=== PATIENT | female | born 1945 | race Caucasian/White ===

== ENCOUNTER 2017-01-18 03:15 | Inpatient (IN) | payer MEDICARE, OTHER, SELFPAY ==
[~2017-01-18] VITALS: Ht 157.5 cm; Wt 132.7 kg
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
--- NOTE | ~2017-01-18 | ECHO ---
Transthoracic Echocardiography Report (TTE) Demographics Patient Name KELLY TABOR Date of Study 01/26/2017 Patient Number [id number] Visit Number [id number] Date of 1945 Room Number G6313 Gender Female Number Age 71 year(s) Referring Rossy [place] Eladia Cutter And Presser Yessenia Peña RVT, Physician A MD AUBREY Roque MD Physician Interpreting Cordell [employer] Marketing Physician Dinora STEVENS Supervising Ordering Alo Roque MD/P Physician Nurse Stress Social Science Teacher Conclusions Summary Limited echo to assess right sided heart. Very limited visualization. Technically difficult exam. Right ventricle appears grossly normal in size (seen well in subcostal images) and RV systolic function appears normal, TAPSE > 1.6 cms. Right atrium is normal in size. IVC measured 1.20 cm with collapse. Procedure Type of Study TTE procedure:Echo Limited w/o Contrast. Procedure Date Date: 01/26/2017 Start: 09:20 AM Study Location: Inpatient Portable Technical Quality: Limited visualization due to body habitus. Indications:Pulmonary embolus. Appropriate Use Criteria: 6 Patient Status: Routine HR: 78 bpm BP: 133/63 mmHg M-Mode/2D Measurements RV Base: 3.69 cm RV Mid: 3.01 cm RV Length: 8.15 cm TAPSE: 2.77 cm TDI-S': 8.01 cm/s Doppler Measurements TR Velocity:1.36 m/s TR Gradient:7.4 mmHg Findings Right Ventricle Normal right ventricle structure and function. Right Atrium Normal right atrial size. IVC measures 1.20 cm with inspiratory collapse. Pericardial Effusion No pericardial effusion. Signature dtt: DINORA CALDERON dtd: 01/26/17 0920 Physician Self Edit
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
--- NOTE | ~2017-01-18 | PUL ---
PATIENT'S NAME: KELLY TABOR [facility] AGE: 71 Y [address] ROOM: [address] [address] LOCATION: GPCU ADMIT DATE: 01/18/2017 Pulmonary DISCHARGE DATE: FAMILY PHYSICIAN: Eladia Black MD ATTENDING PHYSICIAN: JOSIAH VELIZ NAME OF PROCEDURE: Overnight Pulse Oximetry DATE OF PROCEDURE: January 22 to January 23, 2017 REASON FOR EXAM: Nocturnal hypoxemia RESULTS: The test was started on room air, but supplemental oxygen at 1 liter/minute was later added approximately 1 hour into the study. The recording time was 7 hours, 55 minutes, and 44 seconds, with a total valid sampling time of 7 hours, 42 minutes, and 12 seconds. The highest pulse was 107, lowest pulse was 75, with a mean pulse of 91. The highest SpO2 was 96%, lowest SpO2 was 74%, with a mean SpO2 of 91%. The patient spent 1 hour, 18 minutes and 8 seconds with SpO2 less than 89%, representing 16.9% of the total sleep time. The desaturation event index was elevated at 7.5. PHYSICIAN INTERPRETATION: The patient has evidence of significant nocturnal hypoxia and would qualify for supplemental oxygen as per Medicare criteria. However, because of the severity of her nocturnal hypoxia with an elevated desaturation event index a sleep study is recommended at this time. MD HAYDE PEARSON/sedrick /[id number] dtt: 01/28/17 0752 LYLY RADU F dtd: 01/27/17 1117
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
--- NOTE | ~2017-01-18 | ENPV ---
Vascular Lower Extremities DVT Study Procedure Demographics Patient Name KELLY TABOR Date of Study 01/18/2017 Patient Number [id number] Gender Female Date of 1945 Age 71 Visit Number [id number] Height 62 Accession Number [id number] Weight 314.01 Referring Danay Perez MD Interpreting Joao Meier MD Physician Physician Physician Ordering Physician Sole Stainer Power Systems Engineer Maranda Hollingsworth [facility] Conclusions Summary Normal venous duplex examination of the legs bilaterally with normal venous Doppler signals noted throughout. No evidence of thrombophlebitis is noted bilaterally in the deep and superficial veins of the legs. Small calf thrombi cannot be excluded. Procedure Type of Study: Veins:Lower Extremities DVT Study, Lower Extremity Left. Indications for Study:Unilateral pain and edema. Appropriate Use Criteria:7 Technical Quality:Poor visualization due to body habitus. Velocities are measured in cm/s ; Diameters are measured in cm Left Lower Extremities DVT Study Measurements Left 2D and Doppler Measurements + + + + +------+------+ + !Location !Visualized!Compressibility!Thrombosis!Signal!Reflux!Reflux ! ! ! ! ! ! ! !(sec) ! + + + + +------+------+ + !GSV Thigh !Yes !Yes !None !Phasic!No ! ! + + + + +------+------+ + !Common !Yes !Yes !None !Phasic!No ! ! !Femoral ! ! ! ! ! ! ! + + + + +------+------+ + !Prox !Yes !Yes !None !Phasic!No ! ! !Femoral ! ! ! ! ! ! ! + + + + +------+------+ + !Mid Femoral!Yes !Yes !None !Phasic!No ! ! + + + + +------+------+ + !Dist !Yes !Yes !None !Phasic!No ! ! !Femoral ! ! ! ! ! ! ! + + + + +------+------+ + !Popliteal !Yes !Yes !None !Phasic!No ! ! + + + + +------+------+ + !Gastroc !Yes !Yes !None !Phasic!No ! ! + + + + +------+------+ + !PTV !Yes !Yes !None !Phasic!No ! ! + + + + +------+------+ + !Peroneal !No ! ! ! ! ! ! + + + + +------+------+ + Impressions Left Impression Negative for DVT Patient non compliant for venous compression at each CFV site due to pain and movement Signature dtt: WALDEMAR TOWNSEND dtd: 01/18/17 1355 Physician Self Edit
--- NOTE | ~2017-01-18 | ECHO ---
Transthoracic Echocardiography Report (TTE) Demographics Patient Name KELLY TABOR Date of Study 01/19/2017 Patient Number [id number] Visit Number [id number] Date of 1945 Room Number G6313 Gender Female Number Age 71 year(s) Referring Rossy Montilla Flight Director Maranda Perez MD [facility] Danay Berger Physician Interpreting Domi Substation Designer Physician Teena STEVENS Supervising Ordering Danay Perez MD/MLP Physician Nurse Stress Warp Knit Operator Conclusions Contractility Score Summary Normal Left Ventricular contractility was noted. Summary Technically difficult exam. Technically limited study due to body habitus and poor acoustic windows. With definity the apical half of the LV could be visualized. The left ventricle is probably normal in size and function.Cannot comment on WM. Dilated IVC with poor inspiratory collapse consistent with elevated RA pressure. Procedure Type of Study TTE procedure:2D Echocardiogram, M-Mode, Doppler , Color Doppler, Contrast study. Procedure Date Date: 01/19/2017 Start: 10:56 AM Study Location: Inpatient Portable Technical Quality: Limited visualization due to body habitus. Indications:Edema. Additional Indications:Peripheral edema Appropriate Use Criteria: 9 Patient Status: Routine Contrast Medium: Definity. Amount - 9 ml HR: 100 bpm BP: 103/64 mmHg M-Mode/2D Measurements LA volume: 32 ml LVOT: 2 cm Doppler Measurements MV Peak E-Wave: 0.99 m/s MV Peak A-Wave: 1.32 m/s MV E/A Ratio: 0.75 TR Velocity:1.1 m/s MV P1/2t: 98 msec TR Gradient:4.84 mmHg E' Lateral Velocity: 0.12 m/s A' Septal Velocity: 0.13 m/s A' Lateral Velocity: 0.22 m/s Findings Left Ventricle The left ventricle is probably normal in size and function. Right Ventricle The right ventricle is not well visualized. Left Atrium The left atrium is not well visualized. Right Atrium The right atrium is not well visualized. Dilated IVC with poor inspiratory collapse consistent with elevated RA pressure. Mitral Valve Not well seen Aortic Valve The aortic valve is not well visualized. Tricuspid Valve The tricuspid valve is not well visualized. Pulmonic Valve The pulmonic valve is not visualized. Miscellaneous The aortic root and ascending aorta are not well visualized. Contractility Score LV regional wall motion:(0-Non visualized 1-Normal 2-Hypokinesis 3-Akinesis 4-Dyskinesis 5-Aneurysm) Signature dtt: Teena Duron dtd: 01/19/17 1056 Physician Self Edit
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
[2017-01-18 04:27] LABS: BASOPHIL # 0.1 K/uL (0.0-0.2); BASOPHIL % 0.5 %; EOSINOPHIL # 0.2 K/uL (0.0-0.5); EOSINOPHIL % 1.1 %; HEMATOCRIT 36.8 % (33.0-46.0); HEMOGLOBIN 11.7 g/dL (10.0-15.0); IMMATURE GRANULOCYTE # 0.2 K/uL (0.0-0.3); IMMATURE GRANULOCYTE % 1.4 %; LYMPHOCYTE # 1.5 K/uL (0.8-4.0); MCH 29.3 pg (27.0-34.0); MCHC 31.8 gm/dL (32.0-36.5); MCV 92.2 fl (83.0-98.0); MONOCYTE # 0.6 K/uL (0.0-1.0); MONOCYTE % 4.4 %; MPV 10.5 fl (9.4-12.4); NEUTROPHIL # (ANC) 10.8 K/uL (1.8-7.8); NEUTROPHIL % 81.6 %; NRBC % 0 /100WBC (0-0.00); PLATELET COUNT 314 K/uL (150-450); RBC 3.99 M/uL (3.50-5.50); RDW-CV 13.7 % (11.9-14.6); WBC 13.3 K/uL (4.0-11.0)
[2017-01-18 04:42] LABS: ALBUMIN 2.2 gm/dL (3.5-5.0); CREATININE 1.4 mg/dL (0.5-1.1); TOTAL BILIRUBIN 0.5 mg/dL (0.0-1.5)
--- NOTE | 2017-01-18 08:45 | NUR ---
71 YR OLD FEMALE AT HOME AND NIECE BROUGHT TO ER. LOTS OF FLUID DRAINING OUT OF LEG AT HOME. LFT LEG INFECTION. NO ALLERGIES. PATIENT VERY DROWSY.
[2017-01-18] MEDS ORDERED: LASIX40 MG PO (10:52)
[2017-01-18] MEDS ORDERED: PRINIVIL OR ZES10 MG PO (10:53)
[2017-01-18] MEDS ORDERED: K-TAB 10MEQ10 MEQ PO (10:54)
[2017-01-18] MEDS ORDERED: ZOCOR40 MG PO (10:54)
[2017-01-18] MEDS ORDERED: PROTONIX40 MG PO (10:54)
[2017-01-18] MEDS ORDERED: PROVENTIL OR V6.7 GM INH (10:55)
[2017-01-18] MEDS ORDERED: ULTRAM50 MG PO (10:55)
[2017-01-18] MEDS ORDERED: SYMBICORT 16010.2 GM INH (10:55)
[2017-01-18] MEDS ORDERED: TYLENOL EXTRA500 MG PO (10:56)
[2017-01-18] MEDS ORDERED: COZAAR50 MG PO (10:56)
[2017-01-18] MEDS ORDERED: RESTASIS1 EACH OPHTH (10:56)
--- NOTE | 2017-01-18 17:12 | NUR ---
Significant Event: pt arrived from ER at shift change. CXR done. Venous legs doppled, echo in am. CT left leg this afternoon, pt npo until dr reads. Ayala inserted as pt could not void on bedpan. Pt very tachypneic and dyspneic today, does rest well, sleeps alot. Bumex drip started, antibitiotics given and albumin. Extra IV started by flight r)first finger. Call renal to dr as 1700 draw. 99. 2 max temp. Ultram at 1600 for pain. Follow up:
[2017-01-18 17:54] LABS: ALBUMIN 2.3 gm/dL (3.5-5.0); ANION GAP 12.2 (10.0-19.0); MAGNESIUM 2.5 mg/dL (1.3-2.6); PHOSPHORUS 3.1 mg/dL (2.5-4.9); POTASSIUM 4.2 mMol/L (3.7-5.1)
--- NOTE | 2017-01-19 03:47 | NUR ---
Significant Event:A/0X3. RESTED IN BED ALL OF SHIFT. TURNED Q 2 HRS SIDE TO SIDE. HAD A MAX TEMP OF 99.3 IN OR BUT AFBRILE SINCE. VSS ON 2L. MIDLINE TO L) AC HAS BUMEX RUNNING AT 0.5 MG/H. IV TO R) HAND SL. CONTINUE WITH IV ANTIBIOTICS. WENT DOWN FOR AN I/D THIS EVENING ON THE L) THIGH WITH A WOUND VAC PLACED AT 125 MM/HG. NO C/O OF PAIN THIS SHIFT. PATIENT IS RESTING COMFORTABLY. WOC CONSULT TO CHANGE DRESSING 3X/WEEK. VELAZQUEZ PATENT WITH 1,650 ML OUT. NO BM THIS SHIFT. Follow up: DILMA WITH PLAN OF CARE.
[2017-01-19 04:41] LABS: HEMATOCRIT 34.6 % (33.0-46.0); HEMOGLOBIN 10.7 g/dL (10.0-15.0); MCH 29.2 pg (27.0-34.0); MCHC 30.9 gm/dL (32.0-36.5); MCV 94.5 fl (83.0-98.0); MPV 10.9 fl (9.4-12.4); RBC 3.66 M/uL (3.50-5.50); RDW-CV 14.1 % (11.9-14.6); WBC 8.4 K/uL (4.0-11.0)
[2017-01-19 04:47] LABS: PLATELET COUNT 221 K/uL (150-450)
[2017-01-19 04:58] LABS: ALBUMIN 2.7 gm/dL (3.5-5.0); ANION GAP 11.1 (10.0-19.0); CALCIUM 7.9 mg/dL (8.5-10.5); CREATININE 1.1 mg/dL (0.5-1.1); MAGNESIUM 2.4 mg/dL (1.3-2.6); PHOSPHORUS 4.2 mg/dL (2.5-4.9); POTASSIUM 4.1 mMol/L (3.7-5.1)
[2017-01-19 06:26] LABS: ABSOLUTE NEUTROPHIL CT (ANC) 6.6 K/uL (1.8-7.8); BANDED NEUTROPHIL # 0.4 K/uL (0.0-0.1); BANDED NEUTROPHILS % 5 %; LYMPHOCYTE # 1.3 K/uL (0.8-4.0); LYMPHOCYTE % 16 %; MONOCYTE # 0.3 K/uL (0.0-1.0); SEGMENTED NEUTROPHIL # 6.2 K/uL (1.8-7.8); SEGMENTED NEUTROPHIL % 74 %
[2017-01-19 18:54] LABS: ANION GAP 12.6 (10.0-19.0); MAGNESIUM 1.9 mg/dL (1.3-2.6); POTASSIUM 3.6 mMol/L (3.7-5.1)
--- NOTE | 2017-01-19 19:41 | NUR ---
Significant Event: A/O x3, cooperative with cares. VSS, SBPs 90-120s, HRs 80-90s, oxygen at 2 liters; attempted to wean to room air however patient's saturation with drop with repositioning et talking. Tramadol given x2, last at 1502, for c/o pain to L) leg; relief noted. Wound vac intact to L) lower anterior thigh/knee region. WOC nurse up to see patient; stated would changed vac dressing tomorrow since placed last night. Minimal amount of drainage out of wound vac. Ayala patent et draining clear yellow urine 3575 ml out this shift. Remains on bumex gtt at 0.5mg/hr. Reposition every 2 hours when patient allows. PT/OT consults Follow up: wound vac dressing change tomorrow; ID consult on Thu; ? need for PICC line d/t ? intermodal dispatcher abx
--- NOTE | 2017-01-20 04:40 | NUR ---
Significant Event: Patient alert and oriented x3. Forgetful at times. Frequently asks what the wound-vac is and why she has it. Turned Q2 when patient allowed. Temp of 100.2 with second assessment. Tylenol given with relief. All other vital signs stable. On 3-4L this shift. Midline to L) AC with Bumex and IV antibiotics running. IV Magnesium and Potassium given per Dr. Jon orders. Wound-Vac continues to left thigh at 125mm/hg. No C/O pain this shift. Ayala patent with 3450ml uop. Very small BM this shift. Follow up: Will continue to monitor Wound-Vac and respiratory status. Continue IV antibiotics.
[2017-01-20 04:43] LABS: BASOPHIL % 0.4 %; EOSINOPHIL # 0.3 K/uL (0.0-0.5); HEMATOCRIT 34.4 % (33.0-46.0); HEMOGLOBIN 10.9 g/dL (10.0-15.0); IMMATURE GRANULOCYTE # 0.1 K/uL (0.0-0.3); IMMATURE GRANULOCYTE % 1.6 %; LYMPHOCYTE # 1.5 K/uL (0.8-4.0); LYMPHOCYTE % 18.3 %; MCH 29.2 pg (27.0-34.0); MCHC 31.7 gm/dL (32.0-36.5); MCV 92.2 fl (83.0-98.0); MONOCYTE # 0.4 K/uL (0.0-1.0); MONOCYTE % 4.7 %; MPV 9.9 fl (9.4-12.4); NRBC % 0 /100WBC (0-0.00); PLATELET COUNT 247 K/uL (150-450); RBC 3.73 M/uL (3.50-5.50); RDW-CV 13.9 % (11.9-14.6); WBC 8.4 K/uL (4.0-11.0)
[2017-01-20 05:09] LABS: ALBUMIN 3.1 gm/dL (3.5-5.0); CALCIUM 7.7 mg/dL (8.5-10.5); MAGNESIUM 2.2 mg/dL (1.3-2.6); POTASSIUM 3.8 mMol/L (3.7-5.1)
[2017-01-20 05:16] LABS: ANION GAP 7.8 (10.0-19.0)
--- NOTE | 2017-01-20 13:45 | NUR ---
Introduced self and role of care management to patient. She lives alone in [place]. She says she has had HHC through [facility] in the past and will want HHC again. She uses a walker at home. Does not use O2 at home. Says she still drives and has a good car in her driveway. Talked to her about skilled care for awhile. She says she is going home. She says her 40 year old nephew from [place] is going to come stay with her for awhile when she goes home. She says she has a sister in [place] and she has bought at home in [place]. She says she is planning on moving to [place] in April. She has several step children and other relatives in the area. She says a niece was to bring her phone up to the hospital and she has not done it yet. She says they aren't dependable and that is why she is moving to [place]. A lorettaon came to visit and she doesn't want to talk anymore as she says her plan is home with HHC. Talked with Dr. Jon and she says patient will need skilled care. Will contact her sister to talk about discharge plans. Will follow.
[2017-01-20 17:12] LABS: ALBUMIN 3.4 gm/dL (3.5-5.0); ANION GAP 7.3 (10.0-19.0); CALCIUM 7.7 mg/dL (8.5-10.5); CREATININE 1.1 mg/dL (0.5-1.1); MAGNESIUM 1.8 mg/dL (1.3-2.6); PHOSPHORUS 2.2 mg/dL (2.5-4.9); POTASSIUM 3.3 mMol/L (3.7-5.1)
--- NOTE | 2017-01-20 18:42 | NUR ---
Significant Event: VSS AND 2L/NC. AFEBRILE. ULTRAM X1 PRIOR TO WOUND VAC CHANGE, WOUND VAC INCREASED TO 150 MMHG SUCTION AND WILL BE CHANGED AGAIN BY WOC RN ON THURSDAY. IV VANCO AND MERRUM D/C'D AND STARTED NAFCILLIN. BUMEX GTT CONTINUES; VELAZQUEZ WITH 4100 MLS UOP. PICC CONSULT AND TO BE PLACED TOMORROW; MIDLINE AND PIV CONTINUE TO WORK WNL. DANGLES AT BEDSIDE AND WALKS A FEW STEPS WITH PT/OT; UP TO BSC WITH SMALL BM THIS AM. REPOSITIONED Q2H AND ALOE TO BUTTOCKS, NYSTATIN TO FOLDS. Follow up: CONTINUE PLAN OF CARE.
[2017-01-21 03:21] LABS: BASOPHIL % 0.3 %; EOSINOPHIL # 0.2 K/uL (0.0-0.5); EOSINOPHIL % 2.3 %; HEMATOCRIT 36.6 % (33.0-46.0); HEMOGLOBIN 11.8 g/dL (10.0-15.0); IMMATURE GRANULOCYTE # 0.1 K/uL (0.0-0.3); IMMATURE GRANULOCYTE % 1.3 %; LYMPHOCYTE % 20.4 %; MCH 29.1 pg (27.0-34.0); MCHC 32.2 gm/dL (32.0-36.5); MCV 90.1 fl (83.0-98.0); MONOCYTE # 0.4 K/uL (0.0-1.0); MONOCYTE % 4.5 %; MPV 9.8 fl (9.4-12.4); NEUTROPHIL # (ANC) 6.8 K/uL (1.8-7.8); NEUTROPHIL % 71.2 %; NRBC % 0 /100WBC (0-0.00); PLATELET COUNT 278 K/uL (150-450); RBC 4.06 M/uL (3.50-5.50); RDW-CV 13.7 % (11.9-14.6); WBC 9.6 K/uL (4.0-11.0)
[2017-01-21 03:38] LABS: ALBUMIN 3.6 gm/dL (3.5-5.0); ANION GAP 11.5 (10.0-19.0); CALCIUM 8.1 mg/dL (8.5-10.5); CREATININE 1.2 mg/dL (0.5-1.1); MAGNESIUM 2.2 mg/dL (1.3-2.6); PHOSPHORUS 2.9 mg/dL (2.5-4.9); POTASSIUM 3.5 mMol/L (3.7-5.1)
--- NOTE | 2017-01-21 05:00 | NUR ---
Significant Event: Patient alert and oriented x3. Forgetful at times. Makes odd statements at times. Turned when patient allowed. Temp of 99.9 with second assessment. All other vital signs stable. On 4L per NC. Extra strength Tylenol given for temp and complaints of pain to left leg. Wound-Vac continues to left thigh. Set at 150. WOC to change again on Thursday. IV Magnesium given per Dr. Jon orders. Ayala patent with 2850ml uop. Midline to L) AC running Bumex. No BMs this shift. Follow up: Will continue to monitor Wound-Vac and respiratory status. PICC placement today. Continue IV antibiotics.
--- NOTE | 2017-01-21 13:30 | NUR ---
Called and spoke with patient's sister Palak. She says patient usually spends most of the summer in [place] and goes back to [place] for the winter months. She says Melinda has bought a home in [place] and will be moving there permanently. She thinks Melinda's home will probably be ready before April. Talked with her about options for Melinda. Told her Melinda said she had a nephew that would come stay with her. Palak doesn't know for sure who that would be or how long they would stay. Talked about HHC and skilled care. Told her Dr. Jon is recommending skilled care and that I would agree. Told her based on how Melinda is currently moving having just one person at home to help her would not be enough. Talked about SNF facilities close to [place], in [place] and in [place]. Palak says if she goes to a SNF would want it to be in [place]. She says she will talk to the rest of the family and to Melinda about going to a SNF for therapy and to get stronger. Palak will call be back with what facilities they choose. Visited with patient. She is concerned about a form she needs to sign and have notarized. Looked at form with her and told her it appears to be a financial form and I don't think our notaries can do financial forms but I will call them. Called [facility] and she says they can not notarize any financial related forms and this form would fall into that category. Updated patient and she says OK. Talked with patient about discharge plans and skilled care. She says she will be going home with [facility] and that is final. Told her we are worried about her ability to move and do ADLs, etc at home. She says she will be fine at home if [facility] comes in and takes care of her legs. She says his home is all set up. She has a ramp, a walk in shower, a cane, a walker, a w/c etc at home. She say she will not go to a SNF and if she has to show me she can walk she will. She says her legs hurt and that is why she isn't walking, not because she can't. Encouraged her to work with therapy. Will follow.
[2017-01-21 16:17] LABS: ANION GAP 13.3 (10.0-19.0); CALCIUM 8.2 mg/dL (8.5-10.5); CREATININE 1.3 mg/dL (0.5-1.1); MAGNESIUM 2.1 mg/dL (1.3-2.6); POTASSIUM 3.3 mMol/L (3.7-5.1)
--- NOTE | 2017-01-21 17:38 | NUR ---
PATIENT UP TO CHAIR W/ PT/OT, HEAVY 2 ASSIST. SATS LOW 90'S ON 4L NC. HR 90'S, SBP 100'S-120'S. IV BUMEX TO BE D/C'D AT 18:00. LAST DOSE ALBUMIN GIVEN TODAY. CONTINUED IV ANTIBIOTICS. INFECTIOUS DISEASE CONSULTED. STOOL SAMPLE SENT TO LAB. LABS ORDERED FOR AM.
[2017-01-22 04:33] LABS: ALBUMIN 3.6 gm/dL (3.5-5.0); ANION GAP 15.4 (10.0-19.0); CREATININE 1.7 mg/dL (0.5-1.1); MAGNESIUM 2.1 mg/dL (1.3-2.6); PHOSPHORUS 4.1 mg/dL (2.5-4.9); POTASSIUM 3.4 mMol/L (3.7-5.1)
--- NOTE | 2017-01-22 06:05 | NUR ---
Significant Event: Patient alert and oriented x3. Forgetful. Makes confused/odd statements at times. RR 25 with assessments. All other vital signs stable. On 4L O2 per NC. Refused to get into bed until third assessment. Repositioned when allowed. GFR down to [address] Grover notified. Losartin, Linsinopril, and Bumex all stopped. PO potassium given. Wound-Vac continues to left thigh. WOC to change again on Thursday. Ayala patent with 825ml uop. Midline conitinues to L) AC. Cooperative with most cares. Follow up: Will continue to monitor Wound-Vac and respiratory status. Continue IV antibiotics.
--- NOTE | 2017-01-22 13:00 | NUR ---
Spoke with patient, a step son and a niece. Talked with them about discharge plans. Patient says the plan was for her sister to pick her up and she has a place lined up for her to go. But she says the was just here and said she would be here another week because of her kidneys. Asked if I could call her sister, as told her I need to work with the facility the sister has chosen. She says I can. Will contact sister. Will follow.
[2017-01-22 15:34] LABS: BLOOD URINE 10 /UL (NEGATIVE); COLOR URINE YELLOW (YELLOW); GLUCOSE URINE NEGATIVE (NEGATIVE); KETONE URINE NEGATIVE (NEGATIVE); LEUKOCYTES URINE NEGATIVE /UL (NEGATIVE); NITRITE URINE NEGATIVE (NEGATIVE); PROTEIN URINE 15 mg/dL (NEGATIVE); SPEC GRAVITY URINE 1.005 (1.003-1.035); TURBIDITY URINE CLEAR (CLEAR); UROBILINOGEN URINE 1 mg/dL (NORMAL)
[2017-01-22 15:41] LABS: AMORPHOUS URINE 1+ (NEGATIVE); BACTERIA URINE RARE (NEGATIVE); RBC URINE 0-2 #/HPF (NEGATIVE)
--- NOTE | 2017-01-22 17:05 | NUR ---
PATIENT UP TO CHAIR W/ 2 ASSIST, PT/OT. RETURNED TO BED W/ LIFT. REPOSITION Q 2 HRS. ULTRAM X2 FOR PAIN. CONTINUED WOUND VAC. CONTINUED 4L NC, KEEPS SATS LOW 90'S. NEPHROLOGY CONSULTED, DR ROBERSON ROUNDED ON PATIENT. ORDERED DAILY WEIGHT/ STRICT I/O. D/C'D IV ANTIBIOTICS, STARTED PO DOXYCYCLINE. IV NS ORDERED X 24 HOURS. KIDNEY ULTRASOUND COMPLETED, URINE SAMPLE SENT FOR LABS. HEMATEST NEG.
--- NOTE | 2017-01-23 04:19 | NUR ---
Patient A/Ox3. VSS on 1-4L NC. Lift or 2 assist with walker. Lt AC midline NS @ 100ml. Lungs clear/diminished. Bowel sounds present. Wound Vac to Lt thigh intact. Ayala 550ml out. Edema bilateral lower legs. No complaints.
[2017-01-23 06:12] LABS: ALBUMIN 3.3 gm/dL (3.5-5.0); ANION GAP 11.8 (10.0-19.0); CALCIUM 8.2 mg/dL (8.5-10.5); CREATININE 1.5 mg/dL (0.5-1.1); POTASSIUM 3.8 mMol/L (3.7-5.1); TOTAL BILIRUBIN 0.5 mg/dL (0.0-1.5); TOTAL PROTEIN 7.3 g/dL (6.0-8.4)
--- NOTE | 2017-01-23 10:59 | NUR ---
reviewed student charting and on the floor from [id number] olivier [id number]
--- NOTE | 2017-01-23 12:15 | NUR ---
Left M for patient's sister Palak regarding facilitiy they have selected. Talked with therapy and patient went 15 ft today with therapy. Will follow.
--- NOTE | 2017-01-23 13:24 | NUR ---
A - PT SCREENED D/T LOS. WOUND VAC L) THIGH. 3-4+ EDEMA. HT: 62" WT: 299# BMI: 57.9 LABS: ACCUCHECK WNL-REAS, BUN/CR 38/1.5, ALB 3.3, CRP 5.93 MEDS: DOXYCYCLINE, KCL, ALDACTONE, FEOSOL, FLORASTOR, PROTONIX, SSI DIET: DIABETIC, 2-3 GM NA+. INTAKE: 75-100% NEEDS: 4591-7024 KCAL, 100-125 G PRO D - INCREASED PRO NEEDS R/T HEALING AEB ALTERED SKIN INTEGRITY. I - GOAL FOR INTAKE TO REMAIN 75-100% FOR DURATION OF STAY. GOAL FOR IMPROVED SKIN INTEGRITY. WILL ADD OLGA BID M/E - WILL MONITOR INTAKE F/U IN 4-6 DAYS.
--- NOTE | 2017-01-23 15:36 | NUR ---
Received call from Palak, patient's sister and she says patient will be going to [facility] in [place]. She says she thought they were going to call me. Told her I had not heard from them yet, but I can call them also know that I have a name. Palak says she plans to transport Melinda when it is time for her to go to [facility]. Received call from Dejan at [facility]. She says they would be willing to look at patient. She says Melinda's niece works for a physician in [place] and he said he would follow her. Faxed information to Dejan at [facility] and await their decision. Will follow.
--- NOTE | 2017-01-23 16:27 | NUR ---
Significant Event: Patient A/O x3. VS stable on 2-4L O2 per NC. Currently on 2L. Patient full lift transfer for nursing staff. Shower this shift. Patient denies numbness or tingling to extremities. Patient complains of pain, Ultram x1 and Tylenol x1 given this shift with relief noted. Patient has wound vac to L) thigh. WOC in today to change dressing. Midline IV to L) AC SL. IV fluids D'Cd this shift per Dr. Lorenz. Kelly patent and draining yellow urine. 750 out of kelly this shift. Hematest, 1 stool needed. No BM this shift. Patient pleasant and cooperative with cares. Follow up:
[2017-01-24 05:27] LABS: BASOPHIL # 0.1 K/uL (0.0-0.2); BASOPHIL % 0.7 %; EOSINOPHIL # 0.3 K/uL (0.0-0.5); EOSINOPHIL % 4.5 %; HEMATOCRIT 35.2 % (33.0-46.0); HEMOGLOBIN 11.1 g/dL (10.0-15.0); IMMATURE GRANULOCYTE # 0.1 K/uL (0.0-0.3); LYMPHOCYTE # 1.9 K/uL (0.8-4.0); LYMPHOCYTE % 26.6 %; MCHC 31.5 gm/dL (32.0-36.5); MCV 91.9 fl (83.0-98.0); MONOCYTE # 0.4 K/uL (0.0-1.0); MONOCYTE % 5.5 %; MPV 10.1 fl (9.4-12.4); NEUTROPHIL # (ANC) 4.4 K/uL (1.8-7.8); NEUTROPHIL % 61.7 %; NRBC % 0 /100WBC (0-0.00); PLATELET COUNT 266 K/uL (150-450); RBC 3.83 M/uL (3.50-5.50); RDW-CV 14.6 % (11.9-14.6); WBC 7.1 K/uL (4.0-11.0)
[2017-01-24 05:42] LABS: ALBUMIN 3.2 gm/dL (3.5-5.0); CALCIUM 8.3 mg/dL (8.5-10.5); CREATININE 1.2 mg/dL (0.5-1.1); TOTAL BILIRUBIN 0.5 mg/dL (0.0-1.5); TOTAL PROTEIN 7.2 g/dL (6.0-8.4)
--- NOTE | 2017-01-24 07:12 | NUR ---
Significant Event: Alert and oriented X3. VSS. 2L NC. Repositioned every 2 hours. Patient has open areas to buttocks and coccyx. Wound vac to left thigh working well. Lower ext. continue to be red. no c/o pain. Patient concerned last night that her niece left yesterday morning around 10am with patient's debit card. Patient states that she gave her niece her card to go buy a few groceries with the understanding that she "would be right back". Patient called niece several times and left several messages with no returned call. I offered to call [facility] and patient refused. As of this note patient has not had contact with her niece. Follow up: Continue to monitor. Patient needs enc for self cares.
--- NOTE | 2017-01-24 16:05 | NUR ---
Significant Event: PT A/O X3, VSS, REPOSISION PT Q2 AND PRN. 2L TO RA. PT WORK WITH THERAPY. ORDERS TO WRAP LEGS W/ CONCHA WRAPS/TEDHOSE. ELEVATE BLE, POSSIBLE TO CHANGE TO ROOM W/ DOUBLE LIFT. ELEVATE BLE W/ PILLOW, AND BED SETTINGS - PT CAN TOLERATE. IV BUMEX GIVEN. FLUID RESTRICTION OF 1200CC/DAY. CALL LIGHT AND PERSONAL ITEMS IN REACH, QUESTIONS/CONCERNS ADDRESSED THIS TOD. FAMILY AT BEDSIDE OFF/ON THIS TOD. Follow up: REPOSISON Q2 AND PRN, ELEVATE LEGS, POSSIBLE TRANSFER TO ROOM W/ DBL LIFT. STRICT I/O - 1200CC FLUID REST. CONTINUE TO MONITER, CONTINUE PER PLAN OF CARE
[2017-01-25 04:26] LABS: ALBUMIN 3.1 gm/dL (3.5-5.0); ANION GAP 11.9 (10.0-19.0); CALCIUM 8.6 mg/dL (8.5-10.5); CREATININE 1.2 mg/dL (0.5-1.1); PHOSPHORUS 3.2 mg/dL (2.5-4.9); POTASSIUM 3.9 mMol/L (3.7-5.1)
--- NOTE | 2017-01-25 05:46 | NUR ---
Significant event: A/O x 3. Repositioned every 2 hours and as needed throughout the night. Reed wraps off of legs as hs. BM x 1. All VSS on 2L nc with sats in the 90's. wound vac intact.
--- NOTE | 2017-01-25 16:29 | NUR ---
Significant Event: PT A/O X3, VSS, PT TURN/REPO Q2, ELEVATE LEGS ABOVE HEART X2 THIS SHIFT. WASH/DRY LEGS/FEET - APPLY ALOEVISTA AND CONCHA WRAPS BLE. REZERO BED AND CHECK WEIGHT - W/ GREEN SHEET/PT/GOWN. NOTIFED DR. SAEED OF WEIGHT DISCRIPENCY. FAMILY AT BED SIDE OFF/ON THIS TOD. CALL LIGHT AND PERSONAL ITEMS IN REACH. QUESTIONS/CONCERNS ADDRESSED THIS TOD. Follow up: ELEVATE LEGS, STRICT I/O, FLUID REST TO 1500CC/ML. CONTINUE TO MONITER, CONTINUE PER PLAN OF CARE.
--- NOTE | 2017-01-26 05:28 | NUR ---
Significant event: A/O x 3. Repositioned every 2 hours. Reed wraps off at night. Patient to have feet elevated above heart at least two times a day. kelly intact with 3100ml UOP. WOC to come and change the wound vac dressing today.
[2017-01-26 11:43] LABS: ALBUMIN 3.4 gm/dL (3.5-5.0); ANION GAP 14.8 (10.0-19.0); CALCIUM 9.2 mg/dL (8.5-10.5); CREATININE 1.5 mg/dL (0.5-1.1); PHOSPHORUS 3.3 mg/dL (2.5-4.9); POTASSIUM 3.8 mMol/L (3.7-5.1)
--- NOTE | 2017-01-26 16:12 | NUR ---
Significant Event: WOUND VAC CHANGED TODAY. CONCHA WRAPS ON TO LOWER LEGS. CHF CALENDAR GIVEN. 02 ROOM AIR. ULTRAM AND TYLENOL FOR PAIN. ICE LEFT KNEE. PT AMB IN ROOM TODAY TO DOOR. Follow up:
--- NOTE | 2017-01-26 17:36 | NUR ---
Left [facility] for Dejan at [facility]. Talked with her sister, Palak and updated her. She says her DIL has been working with Dejan so she will call them escobar and see if she has heard from Dejan. Told Palak I will call her when I hear back from Dejan. Waiting to hear back from Dejan at [facility] in [place]. Will follow.
--- NOTE | 2017-01-27 04:25 | NUR ---
Significant Event: A/O, [place], SBP 120-130s, HR 80s, 1-2L O2, SOB with activity, pivot transfer to bed with 2 assist, patient did well/needs encouragement, kelly-1000ml, wound vac to L)knee, reinforced with tegaderm, patient pain improved alot after leak was fixed, Ultram x1, Tylenol x1, jennifer wraps removed, legs elevated Follow up: continue plan of care
--- NOTE | 2017-01-27 08:32 | NUR ---
A - NUTRITION F/U. NO NEW LABS. PT W/ 1-2+ BLE EDEMA. NO NEW LABS. PT W/ WOUND VAC TO L) THIGH. DIET: DIABETIC, 2-3 GM NA+, 1500 ML FLUID RESTRICTION. PO 75-100%. EST NEEDS: 0391-9296 KCALS, 100-125 GM PROTEIN. D - AT RISK W/ INCREASED NEEDS R/T ALTERED SKIN INTEGRITY AEB THIGH WOUND. I - GOAL: CONTINUED 75-100% INTAKE. M/E - F/U IN 4-6 DAYS.
[2017-01-27 09:59] LABS: ALBUMIN 3.4 gm/dL (3.5-5.0); CALCIUM 8.9 mg/dL (8.5-10.5); CREATININE 1.3 mg/dL (0.5-1.1); PHOSPHORUS 3.7 mg/dL (2.5-4.9)
--- NOTE | 2017-01-27 15:55 | NUR ---
Significant Event: A/O X3. UP WITH HEAVY 2 ASSIST, GB AND WALKER TO CHAIR. LEFT UPPER MIDLINE SL'D, GOOD BLOOD RETURN. O2 @ 1.5L NC. VELAZQUEZ CATHETER PATENT WITH 1800 ML UOP. PO BUMEX 1 MG RESTARTED. Follow up: CM WORKING ON PLACEMENT.
--- NOTE | 2017-01-27 17:18 | NUR ---
Call from Dejan at [facility] and they can accept patient when she is ready. Spoke with patient and updated her. She says she doesn't think she will go until Thursday or Thursday. Told her it will not be Thursday as they probably won't accept her on the w/e. Talked to Dr. Jon and Rosie ESCOBAR and they say she can transfer tomorrow if family can transport. Called and spoke with patient's sister Palak and she says her son will be the one to transport her and she says he will be able to do it tomorrow. She says he can be here about 1100. Updated Rosie ESCOBAR. Transport O2 will need to be set up by RT. Called and left M for Dejan at [facility] to update her and told her need the name and phone number for the physician following patient while there. Anticipate transfer to [facility] in [place] on 01/28 at 1100. Will follow.
--- NOTE | 2017-01-28 04:30 | NUR ---
Significant Event: Patient A/Ox3. VSS on 1.5L. Ayala d/c'd at 1900. Voiding fine per bedpan. One moderate BM this shift. Heavy 2 assist. SBP 130s-150s. HR 80s-90s. CONCHA wrap removed HS, to be replaced in AM. Wound vac to L) thigh. Still intact from dayshift reinforcement. Follow up: Nephew will milk pickup driver at 100 to go to [place].
[2017-01-28 04:45] LABS: BASOPHIL # 0.1 K/uL (0.0-0.2); BASOPHIL % 0.7 %; EOSINOPHIL # 0.2 K/uL (0.0-0.5); EOSINOPHIL % 2.8 %; HEMOGLOBIN 12.5 g/dL (10.0-15.0); IMMATURE GRANULOCYTE % 0.4 %; LYMPHOCYTE # 2.3 K/uL (0.8-4.0); LYMPHOCYTE % 27.7 %; MCH 28.7 pg (27.0-34.0); MCHC 32.1 gm/dL (32.0-36.5); MCV 89.7 fl (83.0-98.0); MONOCYTE # 0.6 K/uL (0.0-1.0); MONOCYTE % 6.6 %; MPV 10.3 fl (9.4-12.4); NEUTROPHIL # (ANC) 5.2 K/uL (1.8-7.8); NEUTROPHIL % 61.8 %; NRBC % 0 /100WBC (0-0.00); RBC 4.35 M/uL (3.50-5.50); RDW-CV 13.3 % (11.9-14.6); WBC 8.4 K/uL (4.0-11.0)
[2017-01-28 04:51] LABS: PLATELET COUNT 326 K/uL (150-450)
[2017-01-28 05:15] LABS: ALBUMIN 3.4 gm/dL (3.5-5.0); ANION GAP 12.9 (10.0-19.0); CALCIUM 9.2 mg/dL (8.5-10.5); CREATININE 1.4 mg/dL (0.5-1.1); PHOSPHORUS 3.8 mg/dL (2.5-4.9)
[2017-01-28 05:17] LABS: POTASSIUM 3.9 mMol/L (3.7-5.1)
--- NOTE | 2017-01-28 11:00 | NUR ---
Message from Dejan at [facility] and Dr. Katelyn Andrew will follow patient while at their facility. Physician name and phone number given to Rosie Alston APRN and they will call the physician. Call from Cierra HARP at [facility] and answered her questions and got phone number for nurse to nurse. She says they have a wound VAC for her when she arrives. Orders and PASSR faxed to [facility]. Nurse will call nurse to nurse report. Spoke with patient, her stepson and a niece. Patient says her nephew from [place] is here and she just has to call him to pull the van up when she is ready. Patient today to transfer via private vehicle to [facility] in [place] for skilled care.
--- NOTE | 2017-01-28 11:16 | NUR ---
D/C ORDERS TO THE SNF RECIEVED. TX PACKET SENT WITH THE PATIENT AND HER FAMILY ON D/C. HER NEPHEW IS TO TRANSPORT HER TO [place]. WOC RN CHANGED VAC THIS AM AND EXTRA SUPPLIES FOR THE NEXT CHANGE WERE SENT; WOUND VAC CLAMPED AND STERILE GLOVE PLACED ON THE END OF TUBING PER WOC RN ORDER. A COPY OF [facility] ORDERS WERE SENT IN TX PACKET. MIDLINE PIV D/C'D AND CATHETER INTACT. ALL BELONGINGS WERE SENT WITH THE PATIENT AND HER FAMILY. UP TO DATE ON VACCINES. WILL CALL REPORT TO SNF PRIOR TO D/C.
--- NOTE | 2017-01-28 12:00 | NUR ---
D/C ORDERS RECIEVED. TX PACKET SENT WITH THE PATIENT AND HER FAMILY ON D/C. NEPHEW IS TRANSPORTING THE PATIENT VIA PRIVATE AUTO. WOUND VAC CHANGED THIS AM BY WOC RN AND THE TUBING WAS DISCONNECTED, CLAMPED, AND END COVERED BY A STERILE GLOVE PER WOC RN ORDERS FOR TX OF THE PATIENT. COPY OF THE WOUND RN'S ORDERS WERE SENT WITH THE TX PACKET. VSS AND RA. MIDLINE IV D/C'D AND CATHETER INTACT. UP TO DATE ON VACCINES. TAKEN VIA TRANSPORT TEAM (2), MOHEL, AND VARNISHING MACHINE OPERATOR TO THE FRONT ENTRANCE OF THE HOSPITAL AND FAMILY TO TRANSPORT HER TO THE [facility]. CALLED REPORT TO [facility] AND SPOKE WITH JASON; UPDATED NO CONCERNS AT THE TIME.
== END 2017-01-28 12:30 | DRG 871 ==
LOC: GMED 03:15 → GPCU 06:01
PROVIDERS: Emergency Medicine; Family Medicine; Internal Medicine; Internal Medicine Nephrology; Nurse Practitioner Family; ADMIT Internal Medicine
PROC: 0H9JXZZ Drainage of Left Upper Leg Skin, External Approach (ICD-10-PCS; principal; 2017-01-18)
DX: A41.9 Sepsis, unspecified organism (principal); J96.21 Acute and chronic respiratory failure with hypoxia; N17.0 Acute kidney failure with tubular necrosis; I50.30 Unspecified diastolic (congestive) heart failure; L03.115 Cellulitis of right lower limb; L03.116 Cellulitis of left lower limb; Z68.44 Body mass index [BMI] 60.0-69.9, adult; E66.01 Morbid (severe) obesity due to excess calories; I10 Essential (primary) hypertension; G47.33 Obstructive sleep apnea (adult) (pediatric); Z87.891 Personal history of nicotine dependence; D50.9 Iron deficiency anemia, unspecified
CPT/HCPCS: C8929; J1335; J1644; J2185; J3370; J3475; J3480; J7030; J7040; J7050; J7060; J7120; P9047; Q9957